=== PATIENT | male | born 1955 | race Caucasian/White ===

== ENCOUNTER 2016-11-16 17:22 | Emergency (ER) | payer OTHER ==
[~2016-11-16] VITALS: Ht 175.3 cm; Wt 150.0 kg
[~2016-11-16 17:22] MED LIST: ADVA250A INH; ALBU0.086 NEB; ALBU1AER INH; ASPI325T PO; ATOR80TA PO; BUME1TAB PO; CARV12.52 PO; CEFT1INJ IVPB; CLOP75 PO; CONTOUR1 XX; DIPH50IN2 IV; EPIN1INJ20 SQ/IV; FENO160T2 PO; FOLI1 PO; GABA600T PO; HYDR-3535 PO; HYDR250P IVP; LISI-360 PO; METF-324 PO; METH2.5 PO; NITR.4 SL; NOVO7030P2 SQ; NRSS SC; OMEP20TA39 PO; POTA10IN2 PO; TERA2CAP3 PO; TIZA4 PO; TYLETAB36 PO; Z.0.OXYGENDME FM; [UNRECOGNIZED DRUG - CODE] SC
[2016-11-16 17:31] VITALS: BP 162/73; PULSE 61; RESP 18; TEMP 98.4; O2SAT 96
[2016-11-16] MEDS ORDERED: HYDROmorphone HCL PF 1 MG/ML VIAL IVS ONE (17:45)
[2016-11-16] MEDS ORDERED: UMEC1AER INH (17:53)
[2016-11-16] MEDS ORDERED: CARV12.52 PO (17:53)
[2016-11-16] MEDS ORDERED: LAMI250T PO (17:53)
[2016-11-16] MEDS ORDERED: VENTAER INH (17:53)
[2016-11-16] MEDS ORDERED: METF1000 PO (17:53)
[2016-11-16] MEDS ORDERED: GABA600T PO (17:53)
[2016-11-16] MEDS ORDERED: TERA2CAP3 PO (17:53)
[2016-11-16] MEDS ORDERED: N7030SS (17:53)
[2016-11-16] MEDS ORDERED: BUME1TAB PO (17:53)
[2016-11-16] MEDS ORDERED: VALA500T PO (17:53)
[2016-11-16] MEDS ORDERED: VICT18IN SQ (17:53)
[2016-11-16] MEDS ORDERED: ATOR1TAB18 PO (17:53)
[2016-11-16] MEDS ORDERED: PIOG30TA4 PO (17:53)
[2016-11-16] MEDS ORDERED: LISI10TA3 PO (17:53)
[2016-11-16] MEDS ORDERED: APIX5TAB PO (17:53)
[2016-11-16] MEDS ORDERED: NITR0.4S SL (17:53)
[2016-11-16] MEDS ORDERED: POTA10TA2 PO (17:53)
[2016-11-16] MEDS ORDERED: ASPI81TA11 PO (17:53)
[2016-11-16] MEDS ORDERED: FENO160T PO (17:53)
[2016-11-16] MEDS ORDERED: OXYGENDME NAS.CANULA (17:53)
[2016-11-16] MEDS ORDERED: TRAM50TA PO (17:53)
[2016-11-16] MEDS ORDERED: NOVORP2 SQ (17:53)
--- NOTE | 2016-11-16 18:02 | PD ---
HPI Chief Complaint: Fall Time Seen by Provider: 17:43 Travel History International Travel<30 days: No Contact w/Intl Traveler<30days: No Traveled to known affect area: No History of Present Illness [facility] HE ENDED UP DOING SPLIT ON FLOOR AND FOOSH OF LEFT EXTREMITY, C/O LEFT WRIST AND LEFT KNEE PAIN, ALONG WITH BRUISING TO LEFT THIGH , STATES 7/10 ...STATES ON ELIQUIS FOR AFIB. PFSH Past Medical History Hx Anticoagulant Therapy: Yes Arthritis: Yes Depression: Yes Cancer: No Cardiac Catheterization: Yes Cardiovascular Problems: Yes (heart attack) High Cholesterol: Yes Chest Pain: No COPD: Yes Coronary Artery Disease: Yes Diabetes: Yes Patient Takes Glucophage: No Diminished Hearing: No Endocrine: Yes Gastrointestinal Disorders: Yes GERD: Yes Genitourinary: Yes ("spills ketones" ) Hepatitis: Yes (HEP B AND C) Hiatal Hernia: Yes Hypertension: Yes Implanted Vascular Access Dvce: Yes Musculoskeletal: Yes Neurologic: No Psychiatric: Yes Reproductive: No Respiratory: Yes (COPD) Immunizations Current: No (ALLERGY TO PN VACCINE) Myocardial Infarction: Yes Sleep Apnea: Yes Triglycerides - High: Yes PNEUMOCCOCAL Vaccine (Year): 2 ?: Not Past Surgical History Abdominal Surgery: Yes (HERNIAS, APPENDECTOMY) Appendectomy: Yes Body Medical Devices: STENTS X 7 , RODS RIGHT FEMuR- PT STATED REMOVED Cardiac Surgery: No Coronary Stent: Yes (X7) Ear Surgery: No Endocrine Surgery: No Eye Surgery: No Genitourinary Surgery: No Oral Surgery: No Thoracic Surgery: No Tonsillectomy: Yes Other Surgery: Yes (HERNIAS X2. APPY, 2 RODS RT FEMUR,RT WRIST 2X, RING FINGER LEFT HAND, TONSI) Social History Alcohol Use: No (NONE SINCE 1993) Tobacco Use: No (QUIT 2007) Substance Use: Yes Allergies-Medications (Allergen,Severity, Reaction): Coded Allergies: Avandia (Verified Allergy, Severe, SWELLING, 03/29/15) Diovan (Verified Allergy, Severe, SWELLING, 03/29/15) Enalapril (Verified Allergy, Severe, SWELLING, 03/29/15) Flu Vaccine (Verified Allergy, Severe, SEVERE MUSCLE ACHES, 03/29/15) Lasix (Verified Allergy, Severe, DIARRHEA, 03/29/15) Severe diarrhea and dehydration. Penicillin (Verified Allergy, Severe, RASH, 03/29/15) Pneumococcal Vaccine (Verified Allergy, Severe, MUSCLE PAIN, 03/29/15) Sulfa (Verified Allergy, Severe, UNKNOWN REACTION, 03/29/15) *MDRO Multi-Drug Resistant Organism (Verified Allergy, Unknown, 04/23/15) MRSA Wounds 2005, 2008, 2007, 2009 MRSA Screen #1 negative (03/30/2015) Reported Meds & Prescriptions Reported Meds & Active Scripts Active Zofran Odt (Ondansetron Odt) 4 Mg Tab 4 Mg SL Q6HR PRN Lortab (Hydrocodone-Acetaminophen) 7.5-325 Mg Tab 1 Tab PO Q6H PRN Reported Oxygen (O2) Device 2 Liter JORDON.CANULA CONTINUOUS Oxygen Concentrator Portable Gaseous 2 L/min via Nasal Canula Continuous For 99 months Pioglitazone (Pioglitazone HCl) 30 Mg Tab 30 Mg PO DAILY Lamisil (Terbinafine) 250 Mg Tab 250 Mg PO DAILY Valacyclovir (Valacyclovir HCl) 500 Mg Tab 500 Mg PO DAILY Tramadol (Tramadol HCl) 50 Mg Tab 50 Mg PO Q6H PRN Ventolin Hfa 18 GM Inh (Albuterol Sulfate) 90 Mcg/Act Aer 2 Puff INH Q4H PRN Anoro Ellipta Inh (Umeclidinium/Vilanterol) 62.5-25 Mcg/Act Aero 1 Puff INH DAILY Novolin R Inj (Insulin Human Regular) 1,000 Unit/10 Ml Vial 0 SQ DIRECTED Sliding Scale As Directed. Novolin 70/30 Inj (Insulin Human Isoph/Insulin Regular) 1,000 Units/10 Ml Inj Victoza Inj (Liraglutide Inj) 18 Mg/3 Ml Pen 0.6 Mg SQ DAILY Aspirin EC (Aspirin) 81 Mg Tabdr 81 Mg PO DAILY Nitrostat SL (Nitroglycerin) 0.4 Mg Subl 0.4 Mg SL DIRECTED PRN 1 tablet under the tongue as needed for chest pain. Repeat every 5 minutes for a total of 3 DOSES or call 911 if NO relief. Carvedilol 12.5 Mg Tab 12.5 Mg PO BID Lisinopril 10 Mg Tab 10 Mg PO DAILY Potassium Chloride ER (Potassium Chloride) 10 Meq Tab 10 Meq PO BID Fenofibrate 160 Mg Tab 160 Mg PO DAILY Atorvastatin (Atorvastatin Calcium) 80 Mg Tab 80 Mg PO HS Bumetanide 1 Mg Tab 1 Mg PO BID Metformin (Metformin HCl) 1,000 Mg Tab 1,000 Mg PO BIDPC With meals Terazosin (Terazosin HCl) 2 Mg Cap 2 Mg PO HS Eliquis (Apixaban) 5 Mg Tab 5 Mg PO BID Gabapentin 600 Mg Tab 600 Mg PO TID Physical Exam Narrative GENERAL: MORBIDLY OBESE, OXYGEN DEPENDANT USING NC SKIN: Warm and dry. HEAD: Atraumatic. Normocephalic. EYES: Pupils equal and round. No scleral icterus. No injection or drainage. ENT: No nasal bleeding or discharge. Mucous membranes pink and moist. NECK: Trachea midline. No JVD. CARDIOVASCULAR: Regular rate and rhythm. RESPIRATORY: No accessory muscle use. Clear to auscultation. Breath sounds equal bilaterally. GASTROINTESTINAL: Abdomen soft, non-tender, nondistended. Hepatic and splenic margins not palpable. MUSCULOSKELETAL: Extremities without clubbing, cyanosis, or edema. No obvious deformities. ECHYMOSIS ON LEFT POST THIGH/HAMSTRING AREA NEAR POST FOSSA NEUROLOGICAL: Awake and alert. No obvious cranial nerve deficits. Motor grossly within normal limits. Five out of 5 muscle strength in the arms and legs. Normal speech. PSYCHIATRIC: Appropriate mood and affect; insight and judgment normal. Data Data Last Documented VS Vital Signs Date Time Temp Pulse Resp B/P Pulse Ox O2 Delivery O2 Flow Rate FiO2 11/16/16 17:31 98.4 61 18 162/73 96 Orders Us Leg Venous Doppler (11/16/16 17:43) Knee, Complete (4vws) (11/16/16 ) Pelvis, Ap Only (Routine) (11/16/16 ) Iv Access Insert/Monitor (11/16/16 17:43) Hydromorphone Pf Inj (Dilaudid Pf Inj) (11/16/16 17:45) Wrist, Complete ([id number]) (11/16/16 ) ^ Knee Immobilizer (11/16/16 19:11) Support Splint (11/16/16 19:11) MDM Medical Decision Making Medical Screen Exam Complete: Yes Emergency Medical Condition: Yes Medical Record Reviewed: Yes Differential Diagnosis FX V DISLOCATION V SUBLUXATION V LIGAMENTOUS INJURY OF KNEE Narrative Course PATIENT ON ULTRASOUND WAS NOT FOUND TO HAVE ANY DVT OR HEMATOMA COLLECTION ON FOSSA, ALSO NOTED AVULSION FRACTURE ON LEFT KNEE SUSPECT ACL TEAR, WELL AVULSION FX OF WRIST AND PROXIMAL LEFT FIBULA...BOTH NONSURGICAL BUT WILL PLACE IN LEFT VELCRO WRIST SPLINT AND LEFT KNEE IMMOBILIZER Diagnosis Primary Impression: SUSPECT LEFT ACL TEAR Additional Impressions: FIBULAR HEAD AVULSION FX NONDISPLACED DISTAL RADIAL LEFT AVULSION FRACTURE Referrals: Kobi Horn MD FOR FURTHER MANAGEMENT OF YOUR INJURIES Patient Instructions: ACL Injury (ED), General Instructions Scripts Ondansetron Odt (Zofran Odt)4 Mg Tab4 Mg SL Q6HR PRN (Nausea/Vomiting) #20 TAB Prov:Darci Barroso MD 11/16/16 Hydrocodone-Acetaminophen (Lortab)7.5-325 Mg Tab1 Tab PO Q6H PRN (PAIN) #20 TAB Prov:Darci Barroos MD 11/16/16 Disposition: 01 DISCHARGE HOME Condition: Stable Darci Barroso MD Nov 16, 2016 18:02
--- NOTE | 2016-11-16 18:39 | RADRPT ---
EXAM DATE/TIME: 11/16/2016 18:07 [facility] COMPARISON: CT ABDOMEN & PELVIS W CONTRAST, March 29, 2015, 23:45. INDICATIONS : Fell, has pelvic pain MEDICAL HISTORY : Myocardial infarction. Diabetes mellitus type II. Chronic obstructive pulmonary disease. SURGICAL HISTORY : Cardiac stent ENCOUNTER: Initial ACUITY: 3 days PAIN SCORE: 10/10 LOCATION: Bilateral pelvis FINDINGS: No acute fracture. Accessory ossicle adjacent to the greater trochanter. Mild to moderate osteoarthri tis of the hips. CONCLUSION: 1. No acute bony abnormality. Rey Mack MD on November 16, 2016 at 18:36 Board Certified Radiologist. This report was verified electronically.
--- NOTE | 2016-11-16 18:44 | RADRPT ---
EXAM DATE/TIME: 11/16/2016 18:10 [facility] COMPARISON: No previous studies available for comparison. INDICATIONS : Fell, left knee pain MEDICAL HISTORY : Myocardial infarction. Chronic obstructive pulmonary disease. Diabetes mellitus type II. SURGICAL HISTORY : Cardiac stent ENCOUNTER: Initial ACUITY: 3 days PAIN SCORE: 10/10 LOCATION: Left knee FINDINGS: There is a small ossific density at the tibial spine centrally characteristic of a small avulsion fra cture. Also a nondisplaced fibular head fracture. No dislocation. Small joint effusion. No other frac tures are seen. Mild osteoarthritis. CONCLUSION: 1. Avulsion fracture tibial spine which is commonly associated with an ACL injury. Nondisplaced fract ure fibular head. Positive joint effusion. Rey Mack MD on November 16, 2016 at 18:38 Board Certified Radiologist. This report was verified electronically.
--- NOTE | 2016-11-16 18:46 | RADRPT ---
EXAM DATE/TIME: 11/16/2016 18:17 [facility] COMPARISON: No previous studies available for comparison. INDICATIONS : Fell, left wrist pain MEDICAL HISTORY : Chronic obstructive pulmonary disease. Myocardial infarction. Diabetes mellitus type II. SURGICAL HISTORY : cardiac stent ENCOUNTER: Initial ACUITY: 3 days PAIN SCORE: 10/10 LOCATION: Left wrist FINDINGS: On the lateral view there is an ossific density on the dorsal aspect of the distal radius which may o r present a small avulsion fracture if patient is point tender. No other fracture seen. No dislocatio n. Moderate to severe osteoarthritis at the first carpometacarpal joint. CONCLUSION: 1. Questionable small avulsion fracture of the dorsal aspect of the distal radius. No dislocation. Rey Mack MD on November 16, 2016 at 18:43 Board Certified Radiologist. This report was verified electronically.
[2016-11-16] MEDS ORDERED: ZOFR4TAB3 SL (19:11)
[2016-11-16] MEDS ORDERED: HYDR-3534 PO (19:11)
--- NOTE | 2016-11-16 19:18 | RADRPT ---
EXAM DATE/TIME: 11/16/2016 18:45 [facility] COMPARISON: No previous studies available for comparison. INDICATIONS : Left leg pain after fall. MEDICAL HISTORY : Hypercholesterolemia. Hypertension. Heart attack. Myocardial infarction. Hyperlipidemia. COPD. Sl eep apnea. Dyspnea. Enlarged prostate. Emphysema. SURGICAL HISTORY : Tonsillectomy. Coronary stent. Right femur rods. ENCOUNTER: Initial ACUITY: 3 days PAIN SCORE: 10/10 LOCATION: Left leg. TECHNIQUE: Venous ultrasound of the leg was performed from the inguinal ligament to the proximal calf. Real-genoveva e, color Doppler and spectral tracing, compression and augmentation techniques were used. FINDINGS: There is normal compressibility of the deep venous system from the inguinal region to the proximal ca lf. No echogenic clot is seen in the lumen of the common femoral, femoral, popliteal, and posterior tibial veins. There is a normal response of the venous system to proximal and distal augmentation an d respiration. CONCLUSION: 1. Examination technically difficult but no evidence for deep venous thrombosis. Rey Mack MD on November 16, 2016 at 19:16 Board Certified Radiologist. This report was verified electronically.
[2016-11-16 19:56] VITALS: BP 162/78; PULSE 66; RESP 18; O2SAT 96
== END 2016-11-16 20:01 | disposition home or self-care (01) ==
LOC: PHED 17:22
DX: S82.832A Other fracture of upper and lower end of left fibula, initial encounter for closed fracture (principal); S52.502A Unspecified fracture of the lower end of left radius, initial encounter for closed fracture; I25.2 Old myocardial infarction; I48.91 Unspecified atrial fibrillation; Z79.01 Long term (current) use of anticoagulants; W19.XXXA Unspecified fall, initial encounter; M79.605 Pain in left leg
CPT/HCPCS: 72170; 73110; 73564; 93971; 96374; 99284; J1170; L1830; L3908

== ENCOUNTER 2017-02-13 17:38 | Emergency (ER) | payer OTHER ==
[~2017-02-13] VITALS: Ht 175.3 cm; Wt 146.0 kg
[~2017-02-13 17:38] MED LIST changes: -ADVA250A INH; -ALBU0.086 NEB; -ALBU1AER INH; +APIX5TAB PO; -ASPI325T PO; +ASPI81TA23 PO; -ATOR80TA PO; +ATOR80TA45 PO; -CEFT1INJ IVPB; -CLOP75 PO; -CONTOUR1 XX; -DIPH50IN2 IV; -EPIN1INJ20 SQ/IV; +FENO160T PO; -FENO160T2 PO; -FOLI1 PO; +HYDR-3534 PO; -HYDR-3535 PO; -HYDR250P IVP; +LAMI250T PO; -LISI-360 PO; +LISI10TA3 PO; -METF-324 PO; +METF1000 PO; -METH2.5 PO; +N7030SS; -NITR.4 SL; +NITR0.4S SL; -NOVO7030P2 SQ; +NOVORP2 SQ; -NRSS SC; -OMEP20TA39 PO; +OXYGENDME NAS.CANULA; +PIOG30TA4 PO; -POTA10IN2 PO; +POTA10TA2 PO; -TIZA4 PO; +TRAM50TA PO; -TYLETAB36 PO; +UMEC1AER INH; +VALA500T PO; +VENTAER INH; +VICT18IN SQ; -Z.0.OXYGENDME FM; +ZOFR4TAB3 SL; -[UNRECOGNIZED DRUG - CODE] SC
[2017-02-13 17:45] VITALS: BP 162/82; PULSE 64; RESP 22; TEMP 98.1; O2SAT 96
[2017-02-13] MEDS ORDERED: ONDANSETRON ODT 4 MG TAB PO ONE (18:45)
[2017-02-13] MEDS ORDERED: MORPHINE SULFATE 2 MG/ML INJ IM ONE (18:45)
[2017-02-13] MEDS ORDERED: TRAM50TA PO (18:58)
[2017-02-13] MEDS ORDERED: LEFL1TAB3 PO (18:58)
[2017-02-13 19:00] VITALS: RESP 18
--- NOTE | 2017-02-13 19:08 | PD ---
HPI Chief Complaint: Musculoskeletal Complaint Time Seen by Provider: 18:34 Travel History International Travel<30 days: No Contact w/Intl Traveler<30days: No Traveled to known affect area: No History of Present Illness HPI C/O LEFT CHEST WALL SHARP PAIN, AFTER TWISTING MOTION, 11/20, NONRADIATING, MADE WORSE WITH MOVEMENT AND COUGHING..no alleviating factors....no assoc factors of fever/n/v/d/back pain/hematuria/abd pain PFSH Past Medical History Hx Anticoagulant Therapy: Yes Arthritis: Yes Depression: Yes Cancer: No Cardiac Catheterization: Yes Cardiovascular Problems: Yes (heart attack, CARDIAC STENTS X 7) High Cholesterol: Yes Chest Pain: No COPD: Yes Coronary Artery Disease: Yes Diabetes: Yes Patient Takes Glucophage: No Diminished Hearing: No Endocrine: Yes Gastrointestinal Disorders: Yes GERD: Yes Genitourinary: Yes ("spills ketones" ) Hepatitis: Yes (HEP B AND C) Hiatal Hernia: Yes Hypertension: Yes Implanted Vascular Access Dvce: Yes Musculoskeletal: Yes Neurologic: No Psychiatric: Yes Reproductive: No Respiratory: Yes (COPD) Immunizations Current: No (ALLERGY TO PN VACCINE) Myocardial Infarction: Yes Sleep Apnea: Yes Triglycerides - High: Yes Tetanus Vaccination: < 5 Years Influenza Vaccination: Yes PNEUMOCCOCAL Vaccine (Year): 2 ?: Not Past Surgical History Abdominal Surgery: Yes (HERNIAS, APPENDECTOMY) Appendectomy: Yes Body Medical Devices: STENTS X 7 , RODS RIGHT FEMuR- PT STATED REMOVED Cardiac Surgery: No Coronary Stent: Yes (X7) Ear Surgery: No Endocrine Surgery: No Eye Surgery: No Genitourinary Surgery: No Oral Surgery: No Thoracic Surgery: No Tonsillectomy: Yes Other Surgery: Yes (HERNIAS X2. APPY, 2 RODS RT FEMUR,RT WRIST 2X, RING FINGER LEFT HAND, TONSI) Social History Alcohol Use: No (NONE SINCE 1993) Tobacco Use: No (QUIT 2007) Substance Use: Yes Allergies-Medications (Allergen,Severity, Reaction): Coded Allergies: Influenza Virus Vaccines (Unverified Allergy, Severe, PT DENIES, 02/13/17) Sulfa (Sulfonamide Antibiotics) (Unverified Allergy, Severe, UNKNOWN REACTION, 02/13/17) enalaprilat (Unverified Allergy, Severe, SWELLING, 02/13/17) furosemide (Unverified Allergy, Severe, DIARRHEA, 02/13/17) Severe diarrhea and dehydration. penicillin G (Unverified Allergy, Severe, RASH, 02/13/17) pneumococcal vaccine (Unverified Allergy, Severe, MUSCLE PAIN, 02/13/17) rosiglitazone (Unverified Allergy, Severe, SWELLING, 02/13/17) valsartan (Unverified Allergy, Severe, SWELLING, 02/13/17) *MDRO Multi-Drug Resistant Organism (Verified Allergy, Unknown, 04/23/15) MRSA Wounds 2005, 2008, 2007, 2009 MRSA Screen #1 negative (03/30/2015) Reported Meds & Prescriptions Reported Meds & Active Scripts Active Lortab (Hydrocodone-Acetaminophen) 10-325 Mg Tab 1 Tab PO Q4H PRN Baclofen 10 Mg Tab 10 Mg PO TID Reported Tramadol (Tramadol HCl) 50 Mg Tab 150 Mg PO Q8H PRN Leflunomide 20 Mg Tab 20 Mg PO DAILY Oxygen (O2) Device 2 Liter JORDON.CANULA CONTINUOUS Oxygen Concentrator Portable Gaseous 2 L/min via Nasal Canula Continuous For 99 months Pioglitazone (Pioglitazone HCl) 30 Mg Tab 30 Mg PO DAILY Valacyclovir (Valacyclovir HCl) 500 Mg Tab 500 Mg PO DAILY Tramadol (Tramadol HCl) 50 Mg Tab 50 Mg PO Q6H PRN Ventolin Hfa 18 GM Inh (Albuterol Sulfate) 90 Mcg/Act Aer 2 Puff INH Q4H PRN Anoro Ellipta Inh (Umeclidinium/Vilanterol) 62.5-25 Mcg/Act Aero 1 Puff INH DAILY Novolin R Inj (Insulin Human Regular) 1,000 Unit/10 Ml Vial 0 SQ DIRECTED Sliding Scale As Directed. Novolin 70/30 Inj (Insulin Human Isoph/Insulin Regular) 1,000 Units/10 Ml Inj Victoza Inj (Liraglutide Inj) 18 Mg/3 Ml Pen 0.6 Mg SQ DAILY Aspirin EC (Aspirin) 81 Mg Tabdr 81 Mg PO DAILY Nitrostat SL (Nitroglycerin) 0.4 Mg Subl 0.4 Mg SL DIRECTED PRN 1 tablet under the tongue as needed for chest pain. Repeat every 5 minutes for a total of 3 DOSES or call 911 if NO relief. Carvedilol 12.5 Mg Tab 12.5 Mg PO BID Lisinopril 10 Mg Tab 10 Mg PO DAILY Potassium Chloride ER (Potassium Chloride) 10 Meq Tab 10 Meq PO BID Fenofibrate 160 Mg Tab 160 Mg PO DAILY Atorvastatin (Atorvastatin Calcium) 80 Mg Tab 80 Mg PO HS Bumetanide 1 Mg Tab 1 Mg PO BID Metformin (Metformin HCl) 1,000 Mg Tab 1,000 Mg PO BIDPC With meals Terazosin (Terazosin HCl) 2 Mg Cap 2 Mg PO HS Eliquis (Apixaban) 5 Mg Tab 5 Mg PO BID Gabapentin 600 Mg Tab 600 Mg PO TID Review of Systems Except as stated in HPI: all other systems reviewed are Neg General / Constitutional: No: Fever Eyes: No: Visual changes HENT: No: Headaches Cardiovascular: No: Chest Pain or Discomfort Respiratory: No: Shortness of Breath Gastrointestinal: No: Abdominal Pain Genitourinary: No: Dysuria Musculoskeletal: Positive: Pain Skin: No Rash Neurologic: No: Weakness Psychiatric: No: Depression Endocrine: No: Polydipsia Hematologic/Lymphatic: No: Easy Bruising Physical Exam Narrative GENERAL: SKIN: Warm and dry. HEAD: Atraumatic. Normocephalic. EYES: Pupils equal and round. No scleral icterus. No injection or drainage. ENT: No nasal bleeding or discharge. Mucous membranes pink and moist. NECK: Trachea midline. No JVD. CARDIOVASCULAR: Regular rate and rhythm. RESPIRATORY: No accessory muscle use. Clear to auscultation. Breath sounds equal bilaterally. REPRODUCIBLE CW PAIN WHEN PRESSING ALONG MID AXILLARY LEFT 8TH RIB REGION GASTROINTESTINAL: Abdomen soft, non-tender, nondistended. Hepatic and splenic margins not palpable. MUSCULOSKELETAL: Extremities without clubbing, cyanosis, or edema. No obvious deformities. NEUROLOGICAL: Awake and alert. No obvious cranial nerve deficits. Motor grossly within normal limits. Five out of 5 muscle strength in the arms and legs. Normal speech. PSYCHIATRIC: Appropriate mood and affect; insight and judgment normal. Data Data Last Documented VS Orders Orders Ct Thorax/ Chest Wo Iv Contras (02/13/17 ) Morphine Inj (Morphine Inj) (02/13/17 18:45) Ondansetron Odt (Zofran Odt) (02/13/17 18:45) Ed Discharge Order (02/13/17 19:32) Orphenadrine Inj (Norflex Inj) (02/13/17 19:45) MDM Medical Decision Making Medical Screen Exam Complete: Yes Emergency Medical Condition: Yes Medical Record Reviewed: Yes Differential Diagnosis PTX V STRAIN V FX V DISLOCATION V PNA Narrative Course PATIENT EVALUATION C/W MUSCULOSKELETAL STRAIN,....CT NEG FOR PTX/PNA/RIB FX OR DISLOCATION Diagnosis Primary Impression: Intercostal muscle strain Qualified Codes: S29.011A - Strain of muscle and tendon of front wall of thorax, initial encounter Patient Instructions: Chest Wall Pain (GEN), General Instructions Scripts Hydrocodone-Acetaminophen (Lortab) 10-325 Mg Tab 1 TAB PO Q4H Y for PAIN, #20 TAB 0 Refills Prov: Darci Barroso MD 02/13/17 Baclofen (Baclofen) 10 Mg Tab 10 MG PO TID, #21 TAB 0 Refills Prov: Darci Barroso MD 02/13/17 Disposition: 01 DISCHARGE HOME Condition: Stable Darci Barroso MD Feb 13, 2017 19:08
--- NOTE | 2017-02-13 19:10 | RADRPT ---
EXAM DATE/TIME: 02/13/2017 18:50 [facility] COMPARISON: No previous studies available for comparison. INDICATIONS : Left rib pain after twisting when sitting on the toilet. RADIATION DOSE: 31.05 CTDIvol (mGy) ; Patient body habitus MEDICAL HISTORY : Chronic obstructive pulmonary disease. Diabetes mellitus type 2. Myocardial infarction. Hep B & C. H ypertension. SURGICAL HISTORY : Appendectomy. Coronary artery stent. ENCOUNTER: Initial ACUITY: 4 - 6 days PAIN SCALE: 10/10 LOCATION: Left rib TECHNIQUE: Volumetric scanning of the chest was performed. Using automated exposure control and adjustment of t he mA and/or kV according to patient size, radiation dose was kept as low as reasonably achievable to obtain optimal diagnostic quality images. DICOM format image data is available electronically for r eview and comparison. Follow-up recommendations for detected pulmonary nodules are based at a minimum on nodule size and pa tient risk factors according to Fleischner Society Guidelines. FINDINGS: LUNGS: There is no consolidation or pneumothorax. No concerning pulmonary nodule is visualized. PLEURAE: There is no pleural thickening or pleural effusion. MEDIASTINUM: The heart and great vessels demonstrate no acute abnormality. There is no mediastinal or hilar lymph adenopathy. Severe atherosclerotic disease AXILLAE: Within normal limits. No lymphadenopathy. MUSCULOSKELETAL: Within normal limits for patient age. There is a minimal widening of the fifth or eighth ribs on the left which I suspect are all chronic healed fractures MISCELLANEOUS: The visualized upper abdominal organs demonstrate no acute abnormality. Gallstones CONCLUSION: No concerning infiltrate or mass. Lungs are clear. No acute rib fracture is identified Mike Mathew MD on February 13, 2017 at 19:06 Board Certified Radiologist. This report was verified electronically.
[2017-02-13] MEDS ORDERED: BACL10TA PO (19:31)
[2017-02-13] MEDS ORDERED: HYDR-3535 PO (19:31)
[2017-02-13 19:35] VITALS: BP 138/81
[2017-02-13] MEDS ORDERED: ORPHENADRINE INJ 60 MG/2 ML AMP IM ONE (19:45)
== END 2017-02-13 19:56 | disposition home or self-care (01) ==
LOC: PHED 17:38
DX: S29.011A Strain of muscle and tendon of front wall of thorax, initial encounter (principal); E11.9 Type 2 diabetes mellitus without complications; I10 Essential (primary) hypertension; I25.10 Atherosclerotic heart disease of native coronary artery without angina pectoris; J44.9 Chronic obstructive pulmonary disease, unspecified; X50.1XXA Overexertion from prolonged static or awkward postures, initial encounter; Z79.4 Long term (current) use of insulin; Z87.891 Personal history of nicotine dependence
CPT/HCPCS: 71250; 96372; 99285; J2270; J2360

== ENCOUNTER → 2017-07-23 | Outpatient (CLI) | payer OTHER ==
[~2017-07-23] MED LIST changes: +BACL10TA PO; -HYDR-3534 PO; +HYDR-3535 PO; -LAMI250T PO; +LEFL1TAB3 PO; -ZOFR4TAB3 SL
--- NOTE | 2017-07-27 11:13 | RSPPFT ---
DATE OF PROCEDURE: 07/23/17 COMMENTS: Spirometry with FVC of 2.7, FEV1 of 1.9, FEV1/FVC ratio at 73%. A non-significant response to acutely inhaled bronchodilator noted. Slow vital capacity is 70% of predicted. TLC is 66%. Diffusion capacity is 54% of predicted and normal when corrected for alveolar. IMPRESSION: 1. Moderate airways obstruction. 2. Associated airways restriction. 3. Moderate reduction in diffusion capacity. 4. Non-significant response to inhaled bronchodilator.
== END ==
LOC: PHRSP 09:20
PROVIDERS: ATTEND Internal Medicine Sleep Medicine
DX: R06.89 Other abnormalities of breathing (principal)
CPT/HCPCS: 94060; 94729